=== PATIENT | male | born 1955 | race Caucasian/White ===

== ENCOUNTER → 2024-09-24 09:39 | Outpatient (REF) | payer OTHER, MEDICARE, SELFPAY | LOC: RCS 09:39 | PROVIDERS: ATTENDING PHYSICIAN Nurse Practitioner Family | DX: R42 Dizziness and giddiness (principal) | CPT/HCPCS: 93017 ==

== ENCOUNTER → 2024-09-29 17:16 | Outpatient (REF) | payer OTHER, MEDICARE, SELFPAY | LOC: RCS 17:16 | PROVIDERS: ATTENDING PHYSICIAN Nurse Practitioner Family; OTHER PHYSICIAN Student in an Organized Health Care Education/Training Program | DX: R42 Dizziness and giddiness (principal) | CPT/HCPCS: 93306 ==

== ENCOUNTER → 2024-10-05 10:25 | Outpatient (REF) | payer OTHER, MEDICARE, SELFPAY | LOC: RCS 10:25 | PROVIDERS: ATTENDING PHYSICIAN Nurse Practitioner Family | DX: I49.9 Cardiac arrhythmia, unspecified (principal); I10 Essential (primary) hypertension | CPT/HCPCS: 93225; 93226 ==